=== PATIENT | female | born 1955 | race Caucasian/White ===

== ENCOUNTER 2018-02-23 08:02 | Day surgery (SDC) | payer OTHER | END 2018-02-23 12:15 | disposition home or self-care (01) | LOC: AMB-ENDOS 08:02 | DX: K64.8 Other hemorrhoids (principal); D12.2 Benign neoplasm of ascending colon ==

== ENCOUNTER 2024-08-15 11:48 | Emergency (ER) | payer OTHER ==
[~2024-08-15] VITALS: Ht 167.6 cm; Wt 73.5 kg
[2024-08-15] MEDS ORDERED: SIMVASTATIN20 MG (12:18)
[2024-08-15] MEDS ORDERED: SYNTHROID75 MCG (12:18)
[2024-08-15 12:19] VITALS: BP 131/66; O2SAT 99
[2024-08-15] MEDS ORDERED: KETOROLAC TROMETHAMINE 60 MG VIAL IM ONE (12:45)
[2024-08-15] MEDS ORDERED: TRIAMCINOLONE ACETONIDE 40 MG/ML VIAL IM ONE (12:45)
[2024-08-15] MEDS ORDERED: NORFLEX100MG PO (14:09)
[2024-08-15] MEDS ORDERED: DICLOFENAC SODI75 MG PO (14:09)
== END 2024-08-15 14:16 | disposition home or self-care (01) ==
LOC: ER 11:50
DX: M54.50 Low back pain, unspecified (principal); Z88.0 Allergy status to penicillin; I10 Essential (primary) hypertension; M51.369 Other intervertebral disc degeneration, lumbar region without mention of lumbar back pain or lower extremity pain
CPT/HCPCS: 72100; 96372; 99283; J1885; J3301